=== PATIENT | male | born 1985 | race Caucasian/White ===

== ENCOUNTER 2017-04-03 16:01 | Emergency (ER) | payer BC ==
--- NOTE | 2017-04-03 18:24 | EDM.PDOC ---
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 Used to live in the [facility] he moved back to [place] number of months ago. Was seen by the physician there X-rays of the back and hip were negative as reported to the patient and he also had an MRI which he was told was negative. Previously in the [facility] he had been diagnosed with degenerative disc disease of the back. Pain waxes and wanes and he did have a good week couple weeks ago but it's been bad again in the last week. His physician prescribed him naproxen but this causes stomach upset and burning any cannot take this. He hasn't been on any other treatments, has not had any physical therapy or been to any alternative therapy. He was only able to work 16 hours last week because of the pain. Pain is across the low back on both sides is reproducible with pressure and is aggravated by certain movements. It takes considerable movement and stretching different and to find a comfortable position usually curled up on his left side. He also has pain in the right groin and it makes it very hard for him to walk, when the pain is bad he limps markedly hunched over. No difficulty bending over to get his shoes. No pain shooting into her legs no numbness tingling paresthesias of the legs no pain shooting down the legs No pain or weakness or numbness in his hands no neck pain or problems. The concern he has is of some redness located on the fingernails, family members told him it's probably decreased oxygen or circulation because of his back pain. No other joint problems Right Back Pain Score (Numeric/FACES): 8 - Related Data Allergies Allergy/AdvReac Type Severity Reaction Status Date / Time naproxen [From Aleve] Allergy Dizziness Verified 04/03/17 17:00 Home Meds: Home Meds Cyclobenzaprine [Flexeril] 10 mg PO TID PRN #20 tab 04/03/17 [Rx] FLUoxetine HCl [Prozac] 10 mg PO DAILY 04/03/17 [History] Naproxen [Naprosyn] 500 mg PO DAILY 04/03/17 [History] Past Medical History HEENT History: Reports: Hard of Hearing Psychiatric History: Reports: Depression - Past Surgical History HEENT Surgical History: Reports: Adenoidectomy, Other (See Below) Other HEENT Surgeries/Procedures: uvula removed, mastoidectomy Social & Family History - Tobacco Use Smoking Status *Q: Current Every Day Smoker Years of Tobacco use: 15 Packs/Tins Daily: 0.5 Used Tobacco, but Quit: No - Caffeine Use Caffeine Use: Reports: None - Alcohol Use Days Per Week of Alcohol Use: 5 Number of Drinks Per Day: 2 Total Drinks Per Week: 10 - Recreational Drug Use Recreational Drug Use: No ED ROS GENERAL - Review of Systems Review Of Systems: See Below Constitutional: Reports: No Symptoms. Denies: Weakness, Decreased Appetite HEENT: Reports: No Symptoms Respiratory: Reports: No Symptoms Cardiovascular: Reports: No Symptoms GI/Abdominal: Reports: No Symptoms Musculoskeletal: Reports: Back Pain, Joint Pain (Right groin/hip), Other ( Difficulty walking because of the pain) Skin: Reports: Change in Color (Fingernails) Neurological: Reports: Difficulty Walking (Because of pain), Gait Disturbance ( Because of pain). Denies: Numbness, Paresthesia, Syncope, Tingling Psychiatric: Reports: Other (Frustration over the back pain) Immunologic: Reports: No Symptoms ED EXAM, GENERAL - Physical Exam Exam: See Below Exam Limited By: No Limitations General Appearance: Alert, Mild Distress, Other (Elevated blood pressure tonight , other vital signs normal, no difficulty speaking or breathing, normal oxygen saturation) Eye Exam: Bilateral Eye: Normal Inspection Ears: Normal External Exam, Hearing Grossly Normal Nose: Normal Inspection Throat/Mouth: Normal Inspection Head: Atraumatic Respiratory/Chest: No Respiratory Distress, No Accessory Muscle Use Cardiovascular: Normal Peripheral Pulses, Regular Rate, Rhythm, Other (Normal pulses hands and feet normal capillary refill, toes are cool but he has cotton socks on) GI/Abdominal: Non-Tender (Male) Exam: No Hernia Back Exam: Muscle Spasm, Paraspinal Tenderness, Other (Good range of motion but painful to extend,) Extremities: Other Neurological: Alert (Right hip pain, walks with noticeable limp), Oriented, Normal Cognition, No Motor/Sensory Deficits, Other (No numbness of any of his extremities) Psychiatric: Other Skin Exam: Warm, Dry (Normal behavior), Intact, Other (Slight redness proximal to the distal nail, no evidence of circulatory or neurological or musculoskeletal compromise of the fingers, no evidence of disease) Lymphatic: No Adenopathy (of the fingers) Course - Vital Signs Last Recorded V/S: Last Vital Signs Temp 35.4 C 04/03/17 17:12 Pulse 91 04/03/17 17:12 Resp 16 04/03/17 17:12 BP 157/119 H 04/03/17 17:12 Pulse Ox 95 04/03/17 17:12 - Re-Assessments/Exams Free Text/Narrative Re-Assessment/Exam: 04/03/17 18:19 32 yr male with recurring low back and rt hip pain 6 months investigations as reported above On evaluation his pain seems to be primarily in the hips the right greater than the left Because of duration further evaluation is warranted which he has started to undergo He came down today because of concerns about circulation in his hands a stone with family members told him He has some redness in the fingernails just proximal to the white distal part of the nail. However movement strength circulation sensation intact no evidence of neurological or circulatory compromise. Further evaluation of his back pain however is needed Trial of cyclobenzaprine Follow-up with primary care provider May need to see structural worker Departure - Departure Time of Disposition: 18:24 Disposition: Home, Self-Care 01 Condition: Undetermined Clinical Impression: Right hip pain Chronic low back pain Qualifiers: Back pain laterality: bilateral Sciatica presence: without sciatica Qualified Code(s): M54.5 - Low back pain - Discharge Information Prescriptions: Cyclobenzaprine [Flexeril] 10 mg PO TID PRN #20 tab PRN Reason: Muscle pain or spasm Instructions: Hip Pain, Chronic Back Pain Referrals: Simon Hooker MD [Primary Care Provider] - Forms: ED Department Discharge Additional Instructions: Please make another point with your doctor Further evaluation of your hip/back pain as needed perhaps seeing a structural worker in view of the negative MRI and x-ray studies No evidence of compromise of function of the nerves or of circulation in the hands or legs
== END 2017-04-03 18:39 | disposition home or self-care (01) ==
LOC: JP.ED 16:01
DX: M25.551 Pain in right hip (principal); M54.5 Low back pain; F17.210 Nicotine dependence, cigarettes, uncomplicated; Z88.6 Allergy status to analgesic agent; Z79.899 Other long term (current) drug therapy
CPT/HCPCS: 99283

== ENCOUNTER 2017-04-26 15:52 | Emergency (ER) | payer BC ==
[2017-04-26] MEDS ORDERED: Albuterol/Ipratropium 3.0-0.5 MG/3 ML Neb Soln NEB ONE (15:53)
[2017-04-26] MEDS ORDERED: EPINEPHrine 1 MG/ML SDV IM ONE ×2 (15:53→16:11)
[2017-04-26] MEDS ORDERED: methylPREDNISolone Sodium Succinate 125 MG/2 ML SDV IVPUSH ONE (15:54)
--- NOTE | 2017-04-26 16:14 | EDM.PDOC ---
<OfficerAngel - Last Filed: 04/26/17 18:27> ED HPI GENERAL MEDICAL PROBLEM - General Stated Complaint: ALLERGIC REACTION Time Seen by Provider: 04/26/17 16:01 Source of Information: Reports: Patient, EMS, RN Notes Reviewed History Limitations: Reports: Respiratory Distress - History of Present Illness INITIAL COMMENTS - FREE TEXT/NARRATIVE: 32-year-old gentleman presents emergency department today via EMS services for an allergic reaction with anaphylaxis, he believes is related to naproxen ingestion he had taken earlier in the week at which time he felt nauseated he was taking it for back pain. He tried it again today within 20 minutes felt short of breath difficulty breathing with throat closing became red over his entire body EMS services were called he did receive 50 mg of Benadryl 0.5 ml of 1 1000 epinephrine IM also received albuterol neb which did provide some relief to him, - Related Data Allergies Allergy/AdvReac Type Severity Reaction Status Date / Time naproxen [From Aleve] Allergy Dizziness Verified 04/03/17 17:00 Home Meds: Home Meds Cyclobenzaprine [Flexeril] 10 mg PO TID PRN #20 tab 04/03/17 [Rx] FLUoxetine HCl [Prozac] 10 mg PO DAILY 04/03/17 [History] Naproxen [Naprosyn] 500 mg PO DAILY 04/03/17 [History] Past Medical History HEENT History: Reports: Hard of Hearing Psychiatric History: Reports: Depression - Past Surgical History HEENT Surgical History: Reports: Adenoidectomy, Other (See Below) Other HEENT Surgeries/Procedures: uvula removed, mastoidectomy Social & Family History - Tobacco Use Smoking Status *Q: Current Every Day Smoker Years of Tobacco use: 15 Packs/Tins Daily: 0.5 Used Tobacco, but Quit: No - Caffeine Use Caffeine Use: Reports: None - Alcohol Use Days Per Week of Alcohol Use: 5 Number of Drinks Per Day: 2 Total Drinks Per Week: 10 - Recreational Drug Use Recreational Drug Use: No ED ROS ALLERGIC REACTION - Review of Systems Review Of Systems: Unable To Obtain ED EXAM GENERAL NO PERIP PULSE - Physical Exam Exam: See Below Exam Limited By: Respiratory Distress General Appearance: Severe Distress Respiratory/Chest: Respiratory Distress, Decreased Breath Sounds, Wheezing Cardiovascular: Tachycardia Skin Exam: Other (Redness of the whole body) Course - Vital Signs Last Recorded V/S: Last Vital Signs Temp 36.6 C 04/26/17 16:27 Pulse 112 H 04/26/17 17:35 Resp 14 04/26/17 17:35 BP 137/90 04/26/17 17:35 Pulse Ox 96 04/26/17 17:35 - Orders/Labs/Meds Orders: Active Orders 24 hr Category Date Time Status RT Aerosol Therapy [RC] ASDIRECTED Care 04/26/17 15:54 Active Sodium Chloride 0.9% [Normal Saline] 1,000 ml Med 04/26/17 16:15 Active IV ASDIRECTED Medication Orders Sodium Chloride (Normal Saline) 1,000 mls @ 500 mls/hr IV ASDIRECTED ROSA Last Admin: 04/26/17 16:25 Dose: 500 mls/hr Meds: Medications Generic Name Dose Route Start Last Admin Trade Name Freq PRN Reason Stop Dose Admin Sodium Chloride 1,000 mls @ 500 mls/hr 04/26/17 16:15 04/26/17 16:25 Normal Saline IV 500 mls/hr ASDIRECTED ROSA Administration Discontinued Medications Generic Name Dose Route Start Last Admin Trade Name Freq PRN Reason Stop Dose Admin Albuterol/Ipratropium 3 ml 04/26/17 15:53 04/26/17 16:23 Duoneb 3.0-0.5 Mg/3 Ml NEB 04/26/17 15:54 3 ml ONETIME ONE Administration Diphenhydramine HCl 50 mg 04/26/17 16:17 04/26/17 16:25 Benadryl IVPUSH 04/26/17 16:18 50 mg ONETIME ONE Administration Diphenhydramine HCl 50 mg 04/26/17 18:59 04/26/17 19:14 Benadryl PO 04/26/17 19:00 50 mg ONETIME ONE Administration Diphenhydramine HCl Confirm 04/26/17 19:18 Benadryl Administered 04/26/17 19:19 Dose 25 mg .ROUTE .STK-MED ONE Epinephrine HCl 0.5 mg 04/26/17 15:53 04/26/17 16:24 Adrenalin IM 04/26/17 15:54 0.5 mg ONETIME ONE Administration Epinephrine HCl 0.5 mg 04/26/17 16:11 04/26/17 16:24 Adrenalin IM 04/26/17 16:12 0.5 mg ONETIME ONE Administration Hydromorphone HCl 0.5 mg 04/26/17 17:30 04/26/17 17:33 Dilaudid IVPUSH 04/26/17 17:31 0.5 mg ONETIME ONE Administration Methylprednisolone Sodium Succinate 125 mg 04/26/17 15:54 04/26/17 16:25 Solu-Medrol IVPUSH 04/26/17 15:55 125 mg ONETIME ONE Administration Morphine Sulfate 4 mg 04/26/17 16:19 04/26/17 16:22 Morphine IVPUSH 04/26/17 16:20 4 mg ONETIME ONE Administration Oxycodone/Acetaminophen 1 tab 04/26/17 18:13 04/26/17 18:19 Percocet 325-5 Mg PO 04/26/17 18:14 1 tab ONETIME ONE Administration Ranitidine HCl 150 mg 04/26/17 15:53 04/26/17 16:25 Zantac PO 04/26/17 15:54 150 mg NOW STA Administration Departure - Departure Disposition: Home, Self-Care 01 Clinical Impression: Anaphylactic reaction - Discharge Information Referrals: PCP,None [Primary Care Provider] - Care Plan Goals: low activity, push fluids. benadryl 50mg q6h for next 12 hours. percocet 5/325 q8h prn for pain #10 Critical Care Note - Critical Care Note Total Time (mins): 25 <Zoraida Li - Last Filed: 04/26/17 19:31> ED HPI GENERAL MEDICAL PROBLEM Lower Back Pain Score (Numeric/FACES): 7 Course - Re-Assessments/Exams Free Text/Narrative Re-Assessment/Exam: 04/26/17 18:20 pt arrived with a severe allergic reaction. He is doing well but he is very shakey and still looks red total body. Will add percocet 5/325 for back pain. He will have some supper. Another liter of fluid will be run. Will watch over the next hour. Departure - Departure Time of Disposition: 19:00 Condition: Fair
[2017-04-26] MEDS ORDERED: Sodium Chloride 0.9% 1,000 ML IV SCH (16:15)
[2017-04-26] MEDS ORDERED: diphenhydrAMINE 50 MG/ML SDV IVPUSH ONE (16:17)
[2017-04-26] MEDS ORDERED: Morphine 4 MG/ML Syringe IVPUSH ONE (16:19)
[2017-04-26] MEDS ORDERED: HYDROmorphone 0.5 MG/0.5 ML Syringe IVPUSH ONE (17:30)
[2017-04-26] MEDS ORDERED: Acetaminophen/oxyCODONE 325-5 MG Tab PO ONE (18:13)
[2017-04-26] MEDS ORDERED: diphenhydrAMINE 25 MG Cap PO ONE (18:59)
[2017-04-26] MEDS ORDERED: diphenhydrAMINE 25 MG Cap ONE (19:18)
== END 2017-04-26 19:44 | disposition home or self-care (01) ==
LOC: JP.ED 15:52
DX: T88.6XXA Anaphylactic reaction due to adverse effect of correct drug or medicament properly administered, initial encounter (principal); R11.0 Nausea; T39.315A Adverse effect of propionic acid derivatives, initial encounter; F17.210 Nicotine dependence, cigarettes, uncomplicated; Z88.6 Allergy status to analgesic agent; Z79.899 Other long term (current) drug therapy
CPT/HCPCS: 94640; 96361; 96372; 96374; 96375; 99284; A9270; J0171; J1170; J1200; J2270; J2930; J7040; J7620

== ENCOUNTER 2017-10-14 23:31 | Emergency (ER) | payer BC ==
[2017-10-15] MEDS ORDERED: Ketorolac 30 MG/ML SDV IM ONE (00:04)
--- NOTE | 2017-10-15 00:07 | EDM.PDOC ---
ED HPI GENERAL MEDICAL PROBLEM - General Chief Complaint: Cardiovascular Problem Stated Complaint: POSSIBLE BLOOD CLOT IN LEFT LEG Time Seen by Provider: 10/15/17 00:01 Source of Information: Reports: Patient, RN Notes Reviewed History Limitations: Reports: No Limitations - History of Present Illness INITIAL COMMENTS - FREE TEXT/NARRATIVE: 32-year-old gentleman presents to the emergency department today complaint of left leg calf pain and swelling, he does have a history of DVT in the left leg about 4 years ago was anticoagulated he is currently off all anticoagulation at this time. He's noticed the pain and swelling increased over the last couple of days no other symptoms left lower leg Pain Score (Numeric/FACES): 7 right lower leg Pain Score (Numeric/FACES): 3 - Related Data Allergies Allergy/AdvReac Type Severity Reaction Status Date / Time naproxen [From Aleve] Allergy Dizziness Verified 10/14/17 23:52 Home Meds: Home Meds Lisinopril [Prinivil] 20 mg PO DAILY 10/14/17 [History] Past Medical History HEENT History: Reports: Hard of Hearing Cardiovascular History: Reports: Blood Clots/VTE/DVT, Hypertension Respiratory History: Reports: Sleep Apnea Gastrointestinal History: Reports: GERD Musculoskeletal History: Reports: Back Pain, Chronic Psychiatric History: Reports: Depression Hematologic History: Reports: Anticoagulation Therapy, Other (See Below) Other Hematologic History: hx of anticoagulants d/t DVT - Past Surgical History HEENT Surgical History: Reports: Adenoidectomy, Other (See Below) Other HEENT Surgeries/Procedures: uvula removed, mastoidectomy Social & Family History - Tobacco Use Smoking Status *Q: Current Every Day Smoker Years of Tobacco use: 15 Packs/Tins Daily: 1 - Caffeine Use Caffeine Use: Reports: Coffee - Recreational Drug Use Recreational Drug Use: No ED ROS GENERAL - Review of Systems Review Of Systems: See Below Musculoskeletal: Reports: Leg Pain Skin: Reports: Other (Edema) ED EXAM, GENERAL - Physical Exam Exam: See Below Free Text/Narrative:: Examination of the left leg mild amount edema is noted there is no pain with dorsiflexion of the foot pedal pulse is +2 Exam Limited By: No Limitations General Appearance: Alert, WD/WN, No Apparent Distress Ear Exam: Right Ear: TM normal, Left Ear: Discharge, Bilateral Ear: Auricle Normal Head: Atraumatic, Normocephalic Neck: Normal Inspection, Supple, Non-Tender, Full Range of Motion Respiratory/Chest: No Respiratory Distress, Lungs Clear, Normal Breath Sounds, No Accessory Muscle Use Cardiovascular: Regular Rate, Rhythm, No Murmur Course - Vital Signs Last Recorded V/S: Last Vital Signs Temp 98.7 F 10/14/17 23:55 Pulse 88 10/14/17 23:55 Resp 18 10/14/17 23:55 BP 139/101 H 10/14/17 23:55 Pulse Ox 96 10/14/17 23:55 - Orders/Labs/Meds Orders: Active Orders 24 hr Category Date Time Status COMPREHENSIVE METABOLIC PN,CMP [CHEM] Stat Lab 10/15/17 01:11 Ordered Labs: Laboratory Tests 10/15/17 10/15/17 Range/Units 00:15 00:18 WBC 7.3 (4.5-11.0) K/uL RBC 3.93 L (4.30-5.90) M/uL Hgb 13.9 (12.0-15.0) g/dL Hct 39.8 L (40.0-54.0) % MCV 101 H (80-98) fL MCH 35 H (27-31) pg MCHC 35 (32-36) % Plt Count 201 (150-400) K/uL Neut % (Auto) 52 (36-66) % Lymph % (Auto) 31 (24-44) % [place] % (Auto) 10 H (2-6) % Eos % (Auto) 7 H (2-4) % Baso % (Auto) 0 (0-1) % D-Dimer, Quantitative 340 (0.0-400.0) ng/mL Meds: Medications Discontinued Medications Generic Name Dose Route Start Last Admin Trade Name Freq PRN Reason Stop Dose Admin Fentanyl 50 mcg 10/15/17 01:11 10/15/17 01:22 Sublimaze IM 10/15/17 01:12 50 mcg ONETIME ONE Administration Ketorolac Tromethamine 30 mg 10/15/17 00:04 10/15/17 00:23 Toradol IM 10/15/17 00:05 30 mg ONETIME ONE Administration Departure - Departure Time of Disposition: 01:56 Disposition: Home, Self-Care 01 Condition: Good Clinical Impression: Right otitis media with spontaneous rupture of eardrum, Right otitis media Referrals: PCP,None [Primary Care Provider] - Forms: ED Department Discharge Additional Instructions: Take full course of antibiotics, continue to use ibuprofen for baseline pain control, use hydrocodone for breakthrough pain, please establish with a primary care follow-up in the next 3-5 days for reevaluation - My Orders Last 24 Hours: My Active Orders 10/15/17 01:11 COMPREHENSIVE METABOLIC PN,CMP [CHEM] Stat - Assessment/Plan Last 24 Hours: My Active Orders 10/15/17 01:11 COMPREHENSIVE METABOLIC PN,CMP [CHEM] Stat Plan: Assessment Acuity = acute Site and laterality = otitis media right ear, leg swelling Etiology = otitis is probably caused by bacterial, unknown etiology for the leg swelling Manifestations = leg pain Location of injury = Home Lab values = CBC unremarkable, CMP is pending, d-dimer is negative Plan I did review lab work with him elected not to wait for the results from the CMP as the machine was broken down, prescription written for hydrocodone 5/325 one tab by mouth every 6 hours when necessary total #6, Augmentin 875 by mouth twice a day 10 days follow-up primary care 3-5 days for reevaluation This note was dictated using [employer] recognition software please call with any questions on syntax or grammar.
[2017-10-15] MEDS ORDERED: fentaNYL 100 MCG/2 ML SDV IM ONE (01:11)
== END 2017-10-15 02:04 | disposition home or self-care (01) ==
LOC: JP.ED 23:31
DX: H66.91 Otitis media, unspecified, right ear (principal); H72.91 Unspecified perforation of tympanic membrane, right ear; Z79.899 Other long term (current) drug therapy; Z88.8 Allergy status to other drugs, medicaments and biological substances; I10 Essential (primary) hypertension; K21.9 Gastro-esophageal reflux disease without esophagitis; F17.210 Nicotine dependence, cigarettes, uncomplicated
CPT/HCPCS: 36415; 85025; 85379; 96372; 99284; J1885; J3010